=== PATIENT | female | born 1960 | race Caucasian/White ===

== ENCOUNTER 2016-11-29 22:34 | Emergency (ER) | payer BC ==
[~2016-11-29] VITALS: Ht 157.5 cm; Wt 60.9 kg
[2016-11-29 22:39] VITALS: BP 156/71; PULSE 77; RESP 16; TEMP 98.4; O2SAT 98
--- NOTE | 2016-11-29 23:03 | PD ---
HPI Chief Complaint: Headache Time Seen by Provider: 22:47 Travel History International Travel<30 days: No Contact w/Intl Traveler<30days: No Traveled to known affect area: No History of Present Illness HPI 56 years old female complains of headache and eye pain. Patient states that headache started this evening. Patient states that she was having sex with her partner when headache started. Patient states that headache started the left base of the skull with radiation to the left forehead. Patient denies any visual change. Patient noticed red eyes bilaterally. Patient complaining aching pain to the eyes bilaterally. Patient denies any neck pain. Patient denies any chest pain or shortness of breath. She denies abdominal pain. Patient denies any nausea vomiting diarrhea. Patient denies any focal weakness or numbness of extremity. Patient has history of migraine PFSH Social History Tobacco Use: No Allergies-Medications (Allergen,Severity, Reaction): Coded Allergies: Penicillins (Verified Allergy, Intermediate, 11/29/16) Sulfa (Sulfonamide Antibiotics) (Verified Allergy, Intermediate, 11/29/16) cephalexin (Verified Allergy, Intermediate, 11/29/16) ciprofloxacin (Verified Allergy, Intermediate, 11/29/16) metronidazole (Verified Allergy, Intermediate, 11/29/16) niacin (Verified Allergy, Intermediate, 11/29/16) oxycodone (Verified Allergy, Intermediate, 11/29/16) Reported Meds & Prescriptions Reported Meds & Active Scripts Active Fioricet (Lhuixdrxsp-Bpenwfrfxlmzr-Loshlclo) 50-300-40 Mg Cap 1-2 Cap PO Q6H PRN Reported Valacyclovir (Valacyclovir HCl) 500 Mg Tab 500 Mg PO DAILY Review of Systems General / Constitutional: No: Fever Eyes: Positive: Redness, Pain, No: Visual changes HENT: Positive: Headaches Cardiovascular: No: Chest Pain or Discomfort Respiratory: No: Shortness of Breath Gastrointestinal: No: Abdominal Pain Genitourinary: No: Dysuria Musculoskeletal: No: Pain Skin: No Rash Neurologic: No: Weakness Psychiatric: No: Depression Endocrine: No: Polydipsia Hematologic/Lymphatic: No: Easy Bruising Physical Exam Narrative GENERAL: Well-nourished, well-developed patient. SKIN: Focused skin assessment warm/dry. HEAD: Normocephalic. EYES: No scleral icterus. No injection or drainage. NECK: Supple, trachea midline. No JVD or lymphadenopathy. No meningismus CARDIOVASCULAR: Regular rate and rhythm without murmurs, gallops, or rubs. RESPIRATORY: Breath sounds equal bilaterally. No accessory muscle use. GASTROINTESTINAL: Abdomen soft, non-tender, nondistended. MUSCULOSKELETAL: No cyanosis, or edema. BACK: Nontender without obvious deformity. No CVA tenderness. Neurologic exam: Patient's awake and alert oriented 3. No obvious focal neurological deficit. Data Data Last Documented VS Vital Signs Date Time Temp Pulse Resp B/P (MAP) Pulse Ox O2 Delivery O2 Flow Rate FiO2 11/30/16 00:26 85 16 158/72 (100) 11/29/16 22:39 [address] Brain W/O Iv Contrast(Rout) (11/29/16 22:57) Dnyp-Wyqbs-Joyq 325-50-40 Mg (Fioricet 3 (11/30/16 00:15) MDM Medical Decision Making Medical Screen Exam Complete: Yes Emergency Medical Condition: Yes Differential Diagnosis Differential diagnosis including migraine headache, tension headache, cluster headache, temporal arteritis. Narrative Course 56 years old female with headache, bilateral red eyes and eye pain. History of migraine. Diagnosis Primary Impression: Cephalgia Qualified Codes: R51 - Headache Patient Instructions: General Instructions Additional Instructions: Fioricet as needed for headache. Follow-up with personal physician. Return if worse. Med/Other Pt SpecificInfo: Prescription(s) given Scripts Tuclacmyoa-Jqmjutsfvzbgb-Bhftrqre (Fioricet) 50-300-40 Mg Cap 1-2 CAP PO Q6H Y for HEADACHE, #30 CAP 0 Refills Prov: Hugo Erickson MD 11/30/16 Disposition: 01 DISCHARGE HOME Condition: Stable Hugo Erickson MD Nov 29, 2016 23:03
[2016-11-29] MEDS ORDERED: VALA500T PO (23:11)
--- NOTE | 2016-11-29 23:57 | RADRPT ---
EXAM DATE/TIME: 11/29/2016 23:33 [facility] COMPARISON: No previous studies available for comparison. INDICATIONS : Left posterior head pain and eye redness. RADIATION DOSE: 60.02 CTDIvol (mGy) MEDICAL HISTORY : Migraine SURGICAL HISTORY : None. ENCOUNTER: Initial ACUITY: 1 day PAIN SCALE: 7/10 LOCATION: Left occipital TECHNIQUE: Multiple contiguous axial images were obtained of the head. Using automated exposure control and adj ustment of the mA and/or kV according to patient size, radiation dose was kept as low as reasonably a chievable to obtain optimal diagnostic quality images. DICOM format image data is available electro nically for review and comparison. FINDINGS: CEREBRUM: The ventricles are normal for age. No evidence of midline shift, mass lesion, hemorrhage or acute in farction. No extra-axial fluid collections are seen. POSTERIOR FOSSA: The cerebellum and brainstem are intact. The 4th ventricle is midline. The cerebellopontine angle i s unremarkable. EXTRACRANIAL: The visualized portion of the orbits is intact. SKULL: The calvaria is intact. No evidence of skull fracture. CONCLUSION: Negative noncontrast head CT. Luis Faustin MD on November 29, 2016 at 23:55 Board Certified Radiologist. This report was verified electronically.
[2016-11-30] MEDS ORDERED: BUTA1CAP PO (00:06)
[2016-11-30] MEDS ORDERED: ACETAMIN 325 MG/BUTALBITAL 50 MG/CAFFEINE 40 MG TAB PO ONE (00:15)
[2016-11-30 00:26] VITALS: BP 158/72
== END 2016-11-30 00:30 | disposition home or self-care (01) ==
LOC: PHED 22:34
DX: R51 Headache (principal)
CPT/HCPCS: 70450